=== PATIENT | male | born 1990 | race Caucasian/White ===

== ENCOUNTER 2017-06-01 10:56 | Emergency (ER) | payer OTHER, SELFPAY ==
[2017-06-01] MEDS ORDERED: Diazepam 5 MG TAB ONE (12:15)
[2017-06-01] MEDS ORDERED: Ketorolac Tromethamine 60 MG/2 ML VIAL ONE (12:15)
--- NOTE | 2017-06-01 13:33 | RAD ---
LUMBAR SPINE RADIOGRAPHS 3 VIEWS: DATE: 06/01/17. PROVIDED CLINICAL HISTORY:: Back pain. FINDINGS: Five [id number] lumbar-type vertebral bodies are demonstrated. Lumbar alignment appears normal. Vertebral body heights appear preserved. Pedicles appear intact. Sacroiliac appear symmetric. IMPRESSION: No evidence for an acute osseous abnormality. POS: [facility]
== END 2017-06-01 13:31 | disposition home or self-care (01) ==
LOC: ERS 10:56
DX: M54.5 Low back pain (principal); F41.9 Anxiety disorder, unspecified; F17.210 Nicotine dependence, cigarettes, uncomplicated; X50.9XXA Other and unspecified overexertion or strenuous movements or postures, initial encounter
CPT/HCPCS: 72100; 96372; J1885